=== PATIENT | male | born 1965 | race Caucasian/White ===

== ENCOUNTER 2017-01-24 09:20 | Inpatient (IN) | payer MEDICARE ==
--- NOTE | ~2017-01-24 | DS ---
Discharge Summary [facility] [address] [place]. [address] NAME: TONY NICE : 65 STATUS : DIS IN PAT#: [id number] AGE: 52 ADM/REG DATE : 01/24/17 MR#: [id number] REPORT SERV DATE: 02/19/17 DICTATED BY: TONY COREA JR. DATE: 02/18/17 REPORT STATUS : Draft TRANSCRIBED BY: MODDavid DATE: 02/18/17 Data Collection from hospitalization DISCHARGE DIAGNOSES: 1. Status post recent cervical surgery with right empyema and persistent pneumothorax, persistent alveolar pleural fistula, and possible subcutaneous or chest wall abscess. 2. Former smoker. CONSULTATIONS: Joe Huerta M.D. PROCEDURES PERFORMED: Bronchoscopy, right thoracoscopy with exploration, complete decortication, irrigation and debridement of old tube thoracostomy site with iodoform gauze packing, and right parietal pleural biopsy on 01/24/2017. PATHOLOGY: Right pleural biopsy - acute and chronic pleuritis with granulation tissue, marked reactive changes, marked mixed inflammation with fibrosis. DISCHARGE MEDICATIONS: Aspirin 81 mg daily, Lexapro 10 mg daily, Robaxin 500 mg every 8 hours as needed, MS Contin 30 mg every 8 hours, and Percocet 10/325 one tablet every four hours as needed. CONDITION AT DISCHARGE: Stable. DISPOSITION: The patient was discharged home on a regular diet with activities as instructed. He will follow up with Dr. Tony Corea on 03/04/[address] Joe Huerta as needed. He will follow up at the [facility] 1 week following discharge. HOSPITAL COURSE: This is a 52-year-old man who had undergone cervical fusion in October of this year. One being discharged home, he had a poor appetite. He began to lose weight. He became fatigued and developed a respiratory infection. He presented to [facility] with blood cultures positive for strep as well as a large right pleural effusion. A chest tube was placed and 3 L of purulent drainage was evacuated from his chest. He continued to have significant purulent drainage from the chest tube as well as around the chest tube insertion site. We were asked to accept transfer of him to evaluate for possible right thoracoscopy with decortication. He was admitted to the hospital for further evaluation and treatment. Upon admission, his white count was 17.2. He continued to have some purulent drainage, and there was a loculated component on his most recent CT scan as well as lateral pneumothorax. Treatment options were discussed, and it was elected to proceed with surgical intervention. He was taken to the operating room where he underwent the above-mentioned procedure. He tolerated this well. There were no complications. On postop day 1, he was afebrile. Lungs were fairly clear. Pleural fluid culture was pending. White count was 19.1. On postop day 2, he continued to have an air leak. He was afebrile. Over the next couple of days, he had no complaints. He continued to have an air leak. His chest x-ray was unchanged. Urine output was adequate. On the , his white count had decreased to 11.5. Levaquin was discontinued. His wounds were clean, dry, and intact. He was seen in consultation by Dr. Joe Huerta for evaluation and treatment of empyema. Cultures here were actually Discharge Summary [address] [address] NAME: TONY NICE : 65 STATUS : DIS IN PAT#: [id number] AGE: 52 ADM/REG DATE : 01/24/17 MR#: [id number] REPORT SERV DATE: 02/19/17 DICTATED BY: TONY COREA JR. DATE: 02/18/17 REPORT STATUS : Draft TRANSCRIBED BY: TRI DATE: 02/18/17 negative, but he had been on antibiotics in the form of Zosyn and Levaquin. He was afebrile. It had not possible to get things completely closed because of damage to his lungs and a fistula, so it was felt he would likely need to have another procedure to get things filled. He is going to be changed to Unasyn, he was felt to have pneumonia with associated empyema with positive cultures for a strep that was notable for being an abscess former, and in addition to that there were anaerobes present as well. Once he was ready for discharge, we would change that to intravenous penicillin and oral Flagyl to complete probably a 3 week course of antibiotics postoperatively. On 01/29/2017, O2 saturation was 95% on room air. He still had an air leak. White count was 9.7. Urine output was adequate. He was feeling better. He was sitting . Unasyn was continued. On the , chest tube suction was increased. His wounds remained clean, dry, and intact. He had adequate urine output. He was making slow progress. Unasyn was continued. Right pleural fluid cultures showed no growth x3 days. He had no new symptoms. His right elbow x-ray showed no evidence of fracture. Right arm x-ray was erythematous and edematous. Discharge planning was performed. On 02/06/2017, he remained afebrile, his vital signs were stable, chest tubes were removed, sutures were discontinued, a PICC line was inserted. Discharge instructions were given. Due to his improved and stable condition, he was discharged home with the above-stated instructions. Information collected by: Kesha Montoya I submit the above information as my discharge summary. ALEXIS/TRI Tony Corea Jr., M.D. / [id number] CC: Raegan Crockett Jr., M.D.
--- NOTE | ~2017-01-24 | OP ---
Record Of Operation [facility] [address] [place]. [address] NAME: TONY NICE : 65 STATUS : ADM IN PAT#: [id number] AGE: 51 ADM/REG DATE : 01/24/17 MR#: [id number] REPORT SERV DATE: 01/25/17 DICTATED BY: TONY COREA JR. DATE: 01/24/17 REPORT STATUS : Draft TRANSCRIBED BY: MODL DATE: 01/24/17 DATE OF PROCEDURE: 01/24/2017 PREOPERATIVE DIAGNOSES: Status post recent cervical surgery with right empyema and persistent pneumothorax, persistent alveolar pleural fistula, possible subcutaneous or chest wall abscess. POSTOPERATIVE DIAGNOSES: Status post recent cervical surgery with right empyema and persistent pneumothorax, persistent alveolar pleural fistula, possible subcutaneous or chest wall abscess. NAME OF OPERATION: Bronchoscopy, right thoracoscopy with exploration, complete decortication, irrigation and debridement of old tube thoracostomy site with iodoform gauze packing, right parietal pleural biopsy. SURGEON: Tony Corea M.D. RESIDENT SURGEON: Augusto Kaba M.D. OPHTHALMIC MEDICAL ASSISTANT: Cosmo Cruz. ANESTHESIA: General endotracheal. FINDINGS: The patient noted to have mucous secretions within his airway. There were no endobronchial tumors. There is no contraindication proceeding with surgery. Upon entering the right chest, there was a significant amount of purulent material trapped within the chest cavity. This was removed and sent for cultures. There was an obvious air leak in the lateral aspect of the right upper lobe. This alveolar pleural fistula could not be closed surgically. It was not amenable to suture closure or staple closure. There was a loss of domain of the right pleural space. The lung was fixed in the partially inflated location and significantly fused to the lateral and anterior chest wall. The space that was opened laterally along the chest wall only could partially close with getting the lung decorticated with re-expansion but we will not completely close it. He may need omental or muscle flaps if this does not resolve with conservative therapy. The subcutaneous tissue in the chest wall had fluid but no definite pus. This was debrided and packed with iodoform gauze. The parietal pleural biopsy was also performed and sent for permanent analysis. The fossa of chest cavity was sent for cultures. DETAILS OF OPERATION: After adequate general anesthesia, the patient was intubated. Bronchoscopy was performed with above findings noted. A left-sided double-lumen endotracheal tube was then placed. The patient was then positioned in the left lateral decubitus position. The right chest was prepped and draped in routine sterile fashion. A small incision was made overlying the lower intercostal space. Through a single incision site, the chest was explored. The purulent material was removed from the chest cavity. The chest cavity was severely inflamed and obviously had significantly existing and persistent infection. The lung was severely trapped which we were able to get the free portion of the Record Of Operation [address] [address] NAME: TONY NICE : 65 STATUS : ADM IN PAT#: [id number] AGE: 51 ADM/REG DATE : 01/24/17 MR#: [id number] REPORT SERV DATE: 01/25/17 DICTATED BY: TONY COREA JR. DATE: 01/24/17 REPORT STATUS : Draft TRANSCRIBED BY: TRI DATE: 01/24/17 lung decorticated. Along the cable ferryboat operator lateral and anterolateral aspect, it was fused into the parietal pleura. We tried to take this down even extrapleurally and could not separate the lung from the chest wall. There was no way to do it safely. Some areas of the lung tissue were fibrotic and consolidated with no real ventilation. We could not identify any of the fissures. The lung was also fused to the diaphragm. The parietal pleural biopsy was performed. After completing decortication, the chest was thoroughly irrigated with many liters of normal saline solution. Two straight 32-Ugandan chest tubes were placed. The lung was reinflated. The trocar sites were closed with running Vicryl sutures. The skin was closed with running monofilament suture. The previous two thoracoscopy sites was then debrided. The chest tissues and soft tissues were irrigated with saline solution. The wound was then packed with iodoform gauze and closed with simple Prolene sutures. Sterile dressing was applied. The procedure was terminated at this point. The patient returned to recovery room in stable condition. AZUL/TRI Tony Corea Jr., M.D. / [id number] CC: Raegan Crockett Jr., M.D.
--- NOTE | ~2017-01-24 | HP ---
History And Physical [id number] [place]. [address] NAME: TONY NICE : 65 STATUS : ADM IN [facility]#: [id number] AGE: 51 ADM/REG DATE : 01/24/17 MR#: [id number] REPORT SERV DATE: 01/24/17 DICTATED BY: TONY COREA JR. DATE: 01/24/17 REPORT STATUS : Draft TRANSCRIBED BY: MODL DATE: 01/24/17 DATE OF ADMISSION: 01/24/2017 TRANSFERRING PHYSICIAN: Dr. Casey. BRIEF HISTORY: This is a 51-year-old white male, who underwent a cervical fusion in October of this year. Once being discharged home, he had poor appetite, began to lose weight, became fatigued, and developed a respiratory infection. He presented to [facility] with blood cultures positive for strep as well as a large right pleural effusion. A chest tube was placed with 3 L of purulent drainage was evacuated from his chest. He continued to have significant purulent drainage from the chest tube as well as around the chest tube insertion site. We were asked to accept transfer to evaluate him for possible right thoracoscopy with decortication. 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 SOCIAL HISTORY: The patient is single. He has two children. He has a supportive family. He smoked one pack per day for approximately thirty years, but quit in 07/2016. He denies any alcohol or illicit drug use. SURGICAL HISTORY: Significant for right hand surgery as well as appendectomy. FAMILY HISTORY: Significant for mother with a history of melanoma. He denies any family history of any lung cancers. HOME MEDICATIONS: Include aspirin 81 mg. REVIEW OF SYSTEMS: Significant for shortness of breath and fatigue. A complete 12-point review of systems was performed. All other systems negative except above mentioned pertinent positives in history of present illness. PHYSICAL EXAMINATION: GENERAL: This is a 51-year-old white male, who is alert and oriented. No acute distress. HEENT: Normocephalic, atraumatic. Pupils are equal, round, react to light. EARS, NOSE, and THROAT: Without lesions or exudate. NECK: Supple. No lymphadenopathy, JVD, or bruits. Trachea midline. No obvious goiter. CHEST: Symmetrical with no chest wall deformities. He has a right indwelling chest tube. CARDIOVASCULAR: Regular rate and rhythm. S1, S2. No murmurs, rubs, or gallops. RESPIRATORY: Decreased breath sounds throughout the right side, decreased on the left base. ABDOMEN: Soft, nontender, nondistended. Positive bowel sounds in all four quadrants. No hepatosplenomegaly. : The patient voids without difficulty. Further examination was deferred. MUSCULOSKELETAL: No obvious kyphosis or scoliosis. He had recent cervical spine fusion and he has an immobilizing collar on. History And Physical [address] [address] NAME: TONY NICE : 65 STATUS : ADM IN [facility]#: [id number] AGE: 51 ADM/REG DATE : 01/24/17 MR#: [id number] REPORT SERV DATE: 01/24/17 DICTATED BY: TONY COREA JR. DATE: 01/24/17 REPORT STATUS : Draft TRANSCRIBED BY: TRI DATE: 01/24/17 EXTREMITIES: No cyanosis or edema. 2+ pulses bilaterally. 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 SKIN: Warm and dry with normal turgor. No obvious breakdown lesions noted. PSYCHIATRIC: Normal mood and affect. NEUROLOGIC: No focal neurological deficits noted. DATA: Laboratories dated 01/23/2017 showing sodium 139, potassium 4.0, BUN 14, creatinine 0.59, glucose 126. White blood cell count 17.2, hemoglobin 9.2, hematocrit 28.7, platelet count 517. CT of the chest dated 01/23/2017 showing right chest tube in place with lateral right pneumothorax as well as loculated right pleural effusion, small left basilar pleural effusion. PROBLEM LIST: 1. Right-sided empyema. 2. History of tobacco abuse. 3. History of traumatic right hand amputation. 4. Status post cervical fusion. IMPRESSION AND PLAN: This is a 51-year-old white male, who presented to [facility] approximately a week ago with a significant purulent right pleural effusion as well as blood cultures positive for strep and chest tube was placed, and 3 L of purulent fluid was drained. He continued to have some purulent drainage and a loculated component on his most recent CT as well as lateral pneumothorax. We are asked to receive transfer of him for a right thoracoscopy with decortication. We will plan to do this, this evening. Unfortunately, the patient ate breakfast this morning, so we have to wait eight hours prior to induction. I discussed the risks, benefits, and expected outcomes of the above-mentioned procedure. The patient verbalized understanding and willing to proceed as outlined above. DICTATED BY: Kinsey Delaney NP AM/TRI Tony Corea Jr., M.D. / [id number] CC: Tony Corea Jr., M.D.
--- NOTE | ~2017-01-24 | CN ---
Consultation Report [facility] [address] [place]. [address] NAME: TONY NICE : 65 STATUS : ADM IN [facility]#: [id number] AGE: 51 ADM/REG DATE : 01/24/17 MR#: [id number] REPORT SERV DATE: 01/28/17 DICTATED BY: JULIUS AMEZCUA DATE: 01/28/17 REPORT STATUS : Draft TRANSCRIBED BY: MODL DATE: 01/28/17 INFECTIOUS DISEASE CONSULTATION DATE OF CONSULTATION: REFERRING PHYSICIAN: Tony Corea M.D. REASON FOR REFERRAL: Evaluation and treatment of empyema. HISTORY OF PRESENT ILLNESS: The patient is a 51-year-old male who has a history of past tobacco abuse which he has stopped. He had many years ago a traumatic amputation of his right hand. He had cervical spine surgery with a fusion in October. He was up and about from that though still some limited activity, but not bed-bound and he in late December began feeling ill with a gradual onset of malaise, fevers, chills, cough that grew progressively worse. He eventually went in and was admitted at [facility] where he was found to have, in addition to pneumonia, a large right-sided pleural effusion; 3 L of purulent fluid was removed via chest tube and cultures of that grew a Strep anginosus along with an anaerobe. No sensitivities were done on that. He was transferred here on 01/24/2017 for surgery and underwent that on that same day, a VATS with decortication. Cultures here actually were negative, but he was on antibiotics in the form of Zosyn and Levaquin at the time. He is afebrile here and generally doing better. It was not possible to get things completely closed because of a damage to his lung and a fistula, so he will likely have to have another procedure to get things sealed. PAST MEDICAL HISTORY: Otherwise unremarkable. MEDICATIONS: As mentioned above. ALLERGIES: NO KNOWN ANTIMICROBIAL ALLERGIES. SOCIAL HISTORY: He is disabled. Past smoker. though his ex- is actually helping him out with this illness. No history of alcohol or substance abuse. FAMILY HISTORY: Noncontributory. PHYSICAL EXAMINATION: GENERAL: Weak, but nontoxic adult male, in no acute distress. Alert and oriented x3. VITAL SIGNS: Present temperature 97, pulse 100, respirations 16, blood pressure 102/58, weight 68 kg. HEENT: Sclerae clear. No oral lesions. NECK: Supple. LUNGS: Decreased breath sounds on the right side jail up with scattered crackles on the left side. Consultation Report [facility] [address] [place]. [address] NAME: TONY NICE : 65 STATUS : ADM IN [facility]#: [id number] AGE: 51 ADM/REG DATE : 01/24/17 MR#: [id number] REPORT SERV DATE: 01/28/17 DICTATED BY: JULIUS AMEZCUA DATE: 01/28/17 REPORT STATUS : Draft TRANSCRIBED BY: TRI DATE: 01/28/17 HEART: Regular rate and rhythm. ABDOMEN: Soft, nontender. Positive bowel sounds. EXTREMITIES: Without clubbing, cyanosis, or edema. LABORATORY DATA: White count was 19.1 when he came in, went up to 28.1 after surgery, it was 19.1 on 01/25/2017, 11.5 today with a hematocrit of 28.4, platelets 496, unremarkable differential on today's count. BUN and creatinine 14 and 0.52. IMPRESSION: Pneumonia with associated empyema with positive cultures for a strep that is notable for being an abscess former and in addition to that there were anaerobes present as well. RECOMMENDATIONS: 1. We will change to Unasyn to best cover these organisms. 2. Once he is ready for discharge, we will change that to intravenous penicillin and oral Flagyl to complete probably a 3-week course of antibiotics postop. Finally, I will follow the patient with you. I appreciate very much your consulting on this patient. GERMAN Julius Amezcua M.D. / [id number] CC: Tony Corea Jr., M.D.
[2017-01-24 13:06] LABS: HEMATOCRIT 30.8 % (40.0-51.0); HEMOGLOBIN 9.7 g/dL (13.6-17.8); MEAN CORPUS HGB CONC 31.5 g/dL (32.0-36.0); MEAN CORPUSCULAR HEMOGLOB 27.6 pg (26.0-34.0); MEAN CORPUSCULAR VOLUME 87.5 fL (80-100); MEAN PLATELET VOLUME 8.6 fL (9.2-13.0); PLATELET COUNT 622 10/3/uL (150-400); RBC DISTRIBUTION WIDTH 18.6 % (12.0-16.0); RED CELL COUNT 3.52 10/6/uL (4.7-6.1); WHITE BLOOD CELLS 19.1 10/3/uL (4.5-10.5)
[2017-01-24 13:08] LABS: MANUAL DIFF YES %
[2017-01-24 13:21] LABS: BUN (BLOOD UREA NITROGEN) 15 MG/DL (6-23); CALCIUM, SERUM 9.1 MG/DL (8.5-10.4); CHLORIDE, SERUM 106 MMOL/L (96-112); CO2 (CARBON DIOXIDE) 32 MMOL/L (24-34); CREATININE 0.53 MG/DL (0.70-1.30); GFR AFRICAN AMERICAN 142 ML/MIN (>=60); GFR NON AFRICAN AMERICAN 123 ML/MIN (>=60); GLUCOSE, SERUM 99 MG/DL (60-99); POTASSIUM, SERUM 4.1 MMOL/L (3.5-5.3); SODIUM, SERUM 146 MMOL/L (135-148)
[2017-01-24 13:35] LABS: BAND NEUTROPHILS 14 %; BASOPHILS 1 %; BASOPHILS ABSOLUTE (CALC) 0.19 10/3/uL (0.0-0.16); LYMPHOCYTES 12 %; LYMPHOCYTES ABSOLUTE (CALC) 2.29 10/3/uL (0.67-4.30); MONOCYTES 4 %; MONOCYTES ABSOLUTE (CALC) 0.76 10/3/uL (0.21-1.20); NEUTROPHILS ABSOLUTE (CALC) 15.85 10/3/uL (2.02-8.40); SEGMENTED NEUTROPHIL (0) 69 %; TOTAL NUCLEATED CELLS 100
[2017-01-24 13:36] LABS: ANISOCYTOSIS 1+ (5-10/OIF) (0-5/OIF); PLATELET ESTIMATE INC (ADEQUATE); POLYCHROMASIA 1+ (2-5/OIF) (0-1/OIF); TOXIC GRANULATION 1+
[2017-01-24 20:04] LABS: HEMATOCRIT 30.6 % (40.0-51.0); HEMOGLOBIN 9.5 g/dL (13.6-17.8); MEAN CORPUSCULAR HEMOGLOB 27.1 pg (26.0-34.0); MEAN CORPUSCULAR VOLUME 87.2 fL (80-100); MEAN PLATELET VOLUME 8.6 fL (9.2-13.0); PLATELET COUNT 544 10/3/uL (150-400); RBC DISTRIBUTION WIDTH 18.5 % (12.0-16.0); RED CELL COUNT 3.51 10/6/uL (4.7-6.1)
[2017-01-24 20:05] LABS: MANUAL DIFF YES %; WHITE BLOOD CELLS 28.1 10/3/uL (4.5-10.5)
[2017-01-24 20:16] LABS: BUN (BLOOD UREA NITROGEN) 17 MG/DL (6-23); CALCIUM, SERUM 8.6 MG/DL (8.5-10.4); CHLORIDE, SERUM 106 MMOL/L (96-112); CO2 (CARBON DIOXIDE) 29 MMOL/L (24-34); CREATININE 0.49 MG/DL (0.70-1.30); GFR AFRICAN AMERICAN 147 ML/MIN (>=60); GFR NON AFRICAN AMERICAN 127 ML/MIN (>=60); POTASSIUM, SERUM 4.4 MMOL/L (3.5-5.3); SODIUM, SERUM 141 MMOL/L (135-148)
[2017-01-24 20:20] LABS: GLUCOSE, SERUM 147 MG/DL (60-99)
[2017-01-24] MEDS ORDERED: LEXAPRO10 PO (21:28)
[2017-01-24] MEDS ORDERED: MSCONTIN PO (21:28)
[2017-01-24] MEDS ORDERED: METHOC500B PO (21:29)
[2017-01-24] MEDS ORDERED: PERCOCET 10/3251 TAB PO (21:29)
[2017-01-24] MEDS ORDERED: ASAB PO (21:30)
[2017-01-24 21:43] LABS: ANISOCYTOSIS 1+ (5-10/OIF) (0-5/OIF); BAND NEUTROPHILS 5 %; LYMPHOCYTES 7 %; LYMPHOCYTES ABSOLUTE (CALC) 1.97 10/3/uL (0.67-4.30); NEUTROPHILS ABSOLUTE (CALC) 26.13 10/3/uL (2.02-8.40); PLATELET ESTIMATE SLT INC (ADEQUATE); SEGMENTED NEUTROPHIL (0) 88 %; TOTAL NUCLEATED CELLS 100; TOXIC GRANULATION SLT
[2017-01-25 04:09] LABS: BASOPHILS 0.1 %; BASOPHILS ABSOLUTE 0.02 10/3/uL (0.0-0.16); EOSINOPHILS 0 %; HEMATOCRIT 29.9 % (40.0-51.0); HEMOGLOBIN 9.4 g/dL (13.6-17.8); IMMATURE GRANULOCYTES 0.6 %; IMMATURE GRANULOCYTES ABSOLUTE 0.12 10/3/uL (0.0-0.11); LYMPHOCYTES 10.9 %; LYMPHOCYTES ABSOLUTE 2.09 10/3/uL (0.67-4.30); MEAN CORPUS HGB CONC 31.4 g/dL (32.0-36.0); MEAN CORPUSCULAR HEMOGLOB 27.9 pg (26.0-34.0); MEAN CORPUSCULAR VOLUME 88.7 fL (80-100); MEAN PLATELET VOLUME 8.7 fL (9.2-13.0); MONOCYTES 2.2 %; MONOCYTES ABSOLUTE 0.42 10/3/uL (0.21-1.20); NEUTROPHILS 86.2 %; NEUTROPHILS ABSOLUTE 16.46 10/3/uL (2.02-8.40); PLATELET COUNT 531 10/3/uL (150-400); RBC DISTRIBUTION WIDTH 18.7 % (12.0-16.0); RED CELL COUNT 3.37 10/6/uL (4.7-6.1); WHITE BLOOD CELLS 19.1 10/3/uL (4.5-10.5)
[2017-01-25 04:10] LABS: MANUAL DIFF NO %
[2017-01-25 04:40] LABS: BUN (BLOOD UREA NITROGEN) 18 MG/DL (6-23); CALCIUM, SERUM 8.8 MG/DL (8.5-10.4); CHLORIDE, SERUM 105 MMOL/L (96-112); CO2 (CARBON DIOXIDE) 30 MMOL/L (24-34); GFR AFRICAN AMERICAN 127 ML/MIN (>=60); GFR NON AFRICAN AMERICAN 109 ML/MIN (>=60); GLUCOSE, SERUM 145 MG/DL (60-99); POTASSIUM, SERUM 4.6 MMOL/L (3.5-5.3); SODIUM, SERUM 142 MMOL/L (135-148)
[2017-01-28 05:48] LABS: BASOPHILS 0.3 %; BASOPHILS ABSOLUTE 0.04 10/3/uL (0.0-0.16); EOSINOPHILS 0.4 %; EOSINOPHILS ABSOLUTE 0.05 10/3/uL (0.0-0.53); HEMATOCRIT 28.4 % (40.0-51.0); HEMOGLOBIN 8.9 g/dL (13.6-17.8); IMMATURE GRANULOCYTES 0.5 %; IMMATURE GRANULOCYTES ABSOLUTE 0.06 10/3/uL (0.0-0.11); LYMPHOCYTES 26.2 %; LYMPHOCYTES ABSOLUTE 3.01 10/3/uL (0.67-4.30); MEAN CORPUS HGB CONC 31.3 g/dL (32.0-36.0); MEAN CORPUSCULAR HEMOGLOB 28.2 pg (26.0-34.0); MEAN CORPUSCULAR VOLUME 89.9 fL (80-100); MEAN PLATELET VOLUME 8.6 fL (9.2-13.0); MONOCYTES 8.1 %; MONOCYTES ABSOLUTE 0.93 10/3/uL (0.21-1.20); NEUTROPHILS 64.5 %; NEUTROPHILS ABSOLUTE 7.38 10/3/uL (2.02-8.40); PLATELET COUNT 496 10/3/uL (150-400); RED CELL COUNT 3.16 10/6/uL (4.7-6.1); WHITE BLOOD CELLS 11.5 10/3/uL (4.5-10.5)
[2017-01-28 05:57] LABS: MANUAL DIFF NO %
[2017-01-28 06:04] LABS: CALCIUM, SERUM 9.2 MG/DL (8.5-10.4); CHLORIDE, SERUM 103 MMOL/L (96-112); CO2 (CARBON DIOXIDE) 27 MMOL/L (24-34); CREATININE 0.52 MG/DL (0.70-1.30); GFR AFRICAN AMERICAN 143 ML/MIN (>=60); GFR NON AFRICAN AMERICAN 123 ML/MIN (>=60); POTASSIUM, SERUM 4.1 MMOL/L (3.5-5.3); SODIUM, SERUM 140 MMOL/L (135-148)
[2017-01-28 06:05] LABS: BUN (BLOOD UREA NITROGEN) 14 MG/DL (6-23); GLUCOSE, SERUM 96 MG/DL (60-99)
[2017-01-29 06:24] LABS: BASOPHILS 0.3 %; BASOPHILS ABSOLUTE 0.03 10/3/uL (0.0-0.16); EOSINOPHILS 0.7 %; EOSINOPHILS ABSOLUTE 0.07 10/3/uL (0.0-0.53); HEMATOCRIT 29.4 % (40.0-51.0); HEMOGLOBIN 9.2 g/dL (13.6-17.8); IMMATURE GRANULOCYTES 0.3 %; IMMATURE GRANULOCYTES ABSOLUTE 0.03 10/3/uL (0.0-0.11); MEAN CORPUS HGB CONC 31.3 g/dL (32.0-36.0); MEAN CORPUSCULAR VOLUME 89.4 fL (80-100); MEAN PLATELET VOLUME 8.7 fL (9.2-13.0); MONOCYTES 6.7 %; MONOCYTES ABSOLUTE 0.65 10/3/uL (0.21-1.20); NEUTROPHILS ABSOLUTE 6.18 10/3/uL (2.02-8.40); PLATELET COUNT 591 10/3/uL (150-400); RBC DISTRIBUTION WIDTH 19.5 % (12.0-16.0); RED CELL COUNT 3.29 10/6/uL (4.7-6.1); WHITE BLOOD CELLS 9.7 10/3/uL (4.5-10.5)
[2017-01-29 06:25] LABS: MANUAL DIFF NO %
[2017-01-29 06:31] LABS: BUN (BLOOD UREA NITROGEN) 16 MG/DL (6-23); CALCIUM, SERUM 8.9 MG/DL (8.5-10.4); CHLORIDE, SERUM 104 MMOL/L (96-112); CO2 (CARBON DIOXIDE) 31 MMOL/L (24-34); CREATININE 0.58 MG/DL (0.70-1.30); GFR AFRICAN AMERICAN 137 ML/MIN (>=60); GFR NON AFRICAN AMERICAN 118 ML/MIN (>=60); POTASSIUM, SERUM 4.1 MMOL/L (3.5-5.3); SODIUM, SERUM 145 MMOL/L (135-148)
[2017-01-29 06:32] LABS: GLUCOSE, SERUM 119 MG/DL (60-99)
[2017-01-31 04:23] LABS: BASOPHILS 0.3 %; BASOPHILS ABSOLUTE 0.03 10/3/uL (0.0-0.16); EOSINOPHILS 0.9 %; EOSINOPHILS ABSOLUTE 0.09 10/3/uL (0.0-0.53); HEMATOCRIT 30.3 % (40.0-51.0); HEMOGLOBIN 9.5 g/dL (13.6-17.8); IMMATURE GRANULOCYTES 0.4 %; IMMATURE GRANULOCYTES ABSOLUTE 0.04 10/3/uL (0.0-0.11); LYMPHOCYTES 29.8 %; LYMPHOCYTES ABSOLUTE 2.91 10/3/uL (0.67-4.30); MEAN CORPUS HGB CONC 31.4 g/dL (32.0-36.0); MEAN CORPUSCULAR HEMOGLOB 27.9 pg (26.0-34.0); MEAN CORPUSCULAR VOLUME 89.1 fL (80-100); MEAN PLATELET VOLUME 8.6 fL (9.2-13.0); MONOCYTES 8.7 %; MONOCYTES ABSOLUTE 0.85 10/3/uL (0.21-1.20); NEUTROPHILS 59.9 %; NEUTROPHILS ABSOLUTE 5.84 10/3/uL (2.02-8.40); PLATELET COUNT 589 10/3/uL (150-400); RBC DISTRIBUTION WIDTH 19.6 % (12.0-16.0); WHITE BLOOD CELLS 9.8 10/3/uL (4.5-10.5)
[2017-01-31 04:24] LABS: MANUAL DIFF NO %
[2017-01-31 04:37] LABS: CALCIUM, SERUM 9.2 MG/DL (8.5-10.4); CHLORIDE, SERUM 105 MMOL/L (96-112); GFR AFRICAN AMERICAN 145 ML/MIN (>=60); GFR NON AFRICAN AMERICAN 125 ML/MIN (>=60); POTASSIUM, SERUM 4.1 MMOL/L (3.5-5.3); SODIUM, SERUM 141 MMOL/L (135-148)
[2017-01-31 04:38] LABS: BUN (BLOOD UREA NITROGEN) 12 MG/DL (6-23); CO2 (CARBON DIOXIDE) 25 MMOL/L (24-34); GLUCOSE, SERUM 92 MG/DL (60-99)
[2017-02-03 06:54] LABS: BASOPHILS 0.3 %; BASOPHILS ABSOLUTE 0.03 10/3/uL (0.0-0.16); EOSINOPHILS 1.5 %; EOSINOPHILS ABSOLUTE 0.15 10/3/uL (0.0-0.53); HEMATOCRIT 30.9 % (40.0-51.0); HEMOGLOBIN 9.6 g/dL (13.6-17.8); IMMATURE GRANULOCYTES 0.5 %; IMMATURE GRANULOCYTES ABSOLUTE 0.05 10/3/uL (0.0-0.11); LYMPHOCYTES 35.9 %; LYMPHOCYTES ABSOLUTE 3.49 10/3/uL (0.67-4.30); MEAN CORPUS HGB CONC 31.1 g/dL (32.0-36.0); MEAN CORPUSCULAR HEMOGLOB 27.8 pg (26.0-34.0); MEAN CORPUSCULAR VOLUME 89.6 fL (80-100); MEAN PLATELET VOLUME 8.7 fL (9.2-13.0); MONOCYTES ABSOLUTE 0.87 10/3/uL (0.21-1.20); NEUTROPHILS 52.8 %; NEUTROPHILS ABSOLUTE 5.13 10/3/uL (2.02-8.40); PLATELET COUNT 593 10/3/uL (150-400); RBC DISTRIBUTION WIDTH 19.1 % (12.0-16.0); RED CELL COUNT 3.45 10/6/uL (4.7-6.1); WHITE BLOOD CELLS 9.7 10/3/uL (4.5-10.5)
[2017-02-03 06:56] LABS: BUN (BLOOD UREA NITROGEN) 14 MG/DL (6-23); CALCIUM, SERUM 9.3 MG/DL (8.5-10.4); CHLORIDE, SERUM 103 MMOL/L (96-112); CREATININE 0.68 MG/DL (0.70-1.30); GFR AFRICAN AMERICAN 128 ML/MIN (>=60); GFR NON AFRICAN AMERICAN 111 ML/MIN (>=60); GLUCOSE, SERUM 82 MG/DL (60-99); POTASSIUM, SERUM 4.4 MMOL/L (3.5-5.3); SODIUM, SERUM 141 MMOL/L (135-148)
[2017-02-03 06:57] LABS: CO2 (CARBON DIOXIDE) 32 MMOL/L (24-34)
[2017-02-03 07:13] LABS: MANUAL DIFF NO %
== END 2017-02-06 19:45 | disposition home or self-care (01) | DRG 163 ==
LOC: 5NO 09:20
PROVIDERS: Nurse Practitioner Acute Care; Physician Assistant; Thoracic Surgery (Cardiothoracic Vascular Surgery)
PROC: 0WC94ZZ Extirpation of Matter from Right Pleural Cavity, Percutaneous Endoscopic Approach (ICD-10-PCS; 2017-01-24)
PROC: 0BDN4ZZ Extraction of Right Pleura, Percutaneous Endoscopic Approach (ICD-10-PCS; principal; 2017-01-24 10:30)
PROC: 0B9N4ZX Drainage of Right Pleura, Percutaneous Endoscopic Approach, Diagnostic (ICD-10-PCS; 2017-01-24 10:30)
PROC: 02HV33Z Insertion of Infusion Device into Superior Vena Cava, Percutaneous Approach (ICD-10-PCS; 2017-02-06)
PROC: 4A02X4A Measurement of Cardiac Electrical Activity, Guidance, External Approach (ICD-10-PCS; 2017-02-06)
DX: J86.0 Pyothorax with fistula (principal); J15.4 Pneumonia due to other streptococci; J95.811 Postprocedural pneumothorax; Z87.891 Personal history of nicotine dependence; Z79.82 Long term (current) use of aspirin; W18.30XA Fall on same level, unspecified, initial encounter; Y93.01 Activity, walking, marching and hiking; Y92.239 Unspecified place in hospital as the place of occurrence of the external cause; B95.5 Unspecified streptococcus as the cause of diseases classified elsewhere
CPT/HCPCS: 36415; 36569; 71010; 71020; 73080-RT; 80048; 82962; 83735; 85025; 86850; 86900; 86901; 87015; 87070; 87075; 87102; 87116; 87205; 88305; 93005; 94640; A9270-GY; C1751; J0295; J0330; J0690; J1885; J2250; J2370; J2405; J2543; J2710; J2795; J3010